=== PATIENT | male | born 1950 | race African-American/Black ===

== ENCOUNTER 2016-10-10 16:27 | Inpatient (IN) | payer MEDICARE ==
--- NOTE | ~2016-10-10 | HP ---
History And Physical [place] [id number] [place] [address] NAME: DULCE MARIA ELLIS : 52 STATUS : ADM IN PAT#: [id number] AGE: 66 ADM/REG DATE : 10/10/16 MR#: [id number] REPORT SERV DATE: 10/10/16 DICTATED BY: ITZEL ACOSTA DATE: 10/10/16 REPORT STATUS : Draft TRANSCRIBED BY: MODL DATE: 10/10/16 DATE OF ADMISSION: 10/10/2016 PULMONARY CRITICAL CARE MEDICINE ADMITTING HISTORY AND PHYSICAL REASON FOR ADMISSION: Stroke. HISTORY OF PRESENT ILLNESS: Mr. Dulce Maria Ellis is a pleasant 66-year-old, gentleman, who developed onset of acute dysarthria with some right-sided weakness around 1300 today. His initial NIH stroke scale on ER arrival was 6. Of note, he has had a prior left MCA stroke in the past. He was a Code Stroke upon his arrival to the emergency department and was seen by Dr. Montes and later by Dr. Ozuna who administered alteplase around 1452 today. He is now being moved to the intensive care unit for close monitoring as part of a code stroke protocol. ADDITIONAL PAST MEDICAL HISTORY: He is 25+ year insulin-dependent type 1 diabetic with multiple previous episodes of DKA as well as hypoglycemic episodes in the past. He has complications of peripheral neuropathy and autonomic neuropathy as well as retinopathy. He sees Dr. Nino Anand for Endocrinology. He also has a history of nonischemic cardiomyopathy with last echo on file in our system from 2011, which showed left atrial enlargement at around 4.5 cm and global LV hypokinesis between 20% and 25%. He is followed by Dr. Cecilio Mcelroy from Cardiology and has undergone placement of an AICD pacemaker with die filer Dr. Otero who also follows him. His primary care physician is Dr. Jose Saldivar. He had a left MCA stroke in 2010, which presented as dysarthria. He has additional past medical of hypertension, stage 3 chronic kidney disease, childhood asthma, and remote cocaine abuse, as well as seasonal allergies, and intermittent episodes of constipation. PAST SURGICAL HISTORY: Includes pacer, defibrillator placement, as well as device exchange after original implantation. He has had a left ankle ORIF and a right knee arthroscopy. SOCIAL HISTORY: He is . Denies tobacco abuse. He is a very infrequent alcohol user and does have a remote history of cocaine abuse as well, although he has abstained for several years now. 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 FAMILY HISTORY: Mother had stomach cancer. Father had prostate cancer. He has one sibling who of complications of diabetes and another with chronic kidney disease. MEDICATIONS: Amlodipine 10 mg daily, aspirin 325 mg daily, Lipitor 80 mg daily, Bumex 2 mg p.o. twice a day, Coreg 25 mg p.o. twice a day, fluticasone nasal spray 50 mcg to each nasal passage daily, insulin Levemir 14 units subcutaneous twice a day as well as sliding scale short-acting NovoLog with meals, BiDil 20/37.5 three times daily, lactulose as needed for constipation, and Aldactone 25 mg p.o. twice a day. ALLERGIES: NO KNOWN DRUG ALLERGIES. History And Physical [address] [place]. [address] NAME: DULCE MARIA ELLIS : 52 STATUS : ADM IN PAT#: [id number] AGE: 66 ADM/REG DATE : 10/10/16 MR#: [id number] REPORT SERV DATE: 10/10/16 DICTATED BY: ITZEL ACOSTA DATE: 10/10/16 REPORT STATUS : Draft TRANSCRIBED BY: CARMELO DATE: 10/10/16 REVIEW OF SYSTEMS: A 14-point review of systems was completed and was negative except for those points described above in the history of present illness section of the dictation. PHYSICAL EXAMINATION: GENERAL: gentleman. No stated pain. He is in no acute distress. VITAL SIGNS: Normotensive with blood pressure in the 130 systolic, normal heart rate, afebrile, with normal respirations. HEENT: Head is atraumatic and normocephalic. Pupils are equal, round, and reactive to light. Extraocular movements are intact. Ears, nose, and mouth are unremarkable. He has fair oral dentition. Moist oral mucosa. NECK: Supple with some redundant soft tissue about the neck. Limiting ability to assess for JVD. No nuchal rigidity is appreciated. HEART: S1, S2. Brisk cap refill to distal extremities. He has AICD insertion scar, which is well healed in the upper chest. LUNGS: Significant for slightly diminished breath sounds with a few scattered crackles at the bases bilaterally. ABDOMEN: Obese, soft, nontender, nondistended, with positive bowel sounds in all four quadrants, and no appreciable peritoneal signs. : Normal external male genitalia. EXTREMITIES: With trace edema bilaterally pretibially. No clubbing or cyanosis appreciated. LYMPHATIC: Unremarkable. No palpable adenopathy throughout. NEUROLOGIC: Mildly dysarthric with no evidence of aphasia. He states his dysarthria is much improved from earlier this afternoon prior to alteplase administration. He has a slight right handgrip weakness when compared to the left, but is able to lift and hold both right upper extremities in the ER for 10 seconds. Sensory function appears to be symmetric throughout. Gait and coordination were not assessed. He is awake, cooperative, and interactive with examination. PSYCHIATRIC: Appropriate to situation. LABORATORY DATA: Personal review of diagnostic workup completed in the emergency department today. A brain stroke protocol was read as no acute CVA or ICH, large old MCA, CVA, and moderate diffuse cerebral involutional changes. A CTA head and neck showed no intra- arterial thrombus, suboptimal opacification of the arteries in the neck, overall unremarkable CT angiogram. CBC was unremarkable. Normal white blood cell count and platelet count. He has mild normochromic/normocytic anemia with a hemoglobin of 12.8, hematocrit of 38.8. His INR is 1.2. Of note, he is on no anticoagulants according to his current home medication list. We will need to investigate this further. Metabolic profile largely unremarkable. He has a creatinine level of 1.62 with a known history of stage 3 chronic kidney disease and BUN which is 23. His calculated GFR is around 51 mL/minute. He is hyperglycemic at 229 in the setting of known type 1 diabetes which is fairly brittle. He has mild elevation of troponin of 0.09, normal transaminases, and a slight hypoalbuminemia at 3.4. An EKG shows normal sinus rhythm with a slightly prolonged QT at a ventricular rate of [address] elevation or depression by my assessment. [employer] [facility] records were reviewed including 2012 echocardiogram and previous dictations from History And Physical [address] [address] NAME: DULCE MARIA ELLIS EVELYN : 52 STATUS : ADM IN [facility]#: [id number] AGE: 66 ADM/REG DATE : 10/10/16 MR#: [id number] REPORT SERV DATE: 10/10/16 DICTATED BY: ITZEL ACOSTA DATE: 10/10/16 REPORT STATUS : Draft TRANSCRIBED BY: CARMELO DATE: 10/10/16 Hospital Medicine Service as well as consulting services. IMPRESSION: 1. Suspected acute cerebrovascular accident in the setting of dysarthria, right hemiparesis, and multiple stroke risk factors, including prior left middle cerebral artery cerebrovascular accident status post administration of alteplase in the emergency department after assessment of Dr. Ozuna at 1452 today. He has been started on a stroke protocol and we will continue close observation in the CCU tonight. He is not a candidate for an MRI secondary to his AICD. Dr. Ozuna has already completed most of his stroke protocol orders including fasting lipid profile and carotid Doppler study and a followup CT for tomorrow morning. 2. Type 1 diabetes long-standing with multiple complications as seen in the HPI section as well as past medical history section. We will continue covering him with long and short-acting insulins. Pending passage of a bedside dysphagia screen such that he may continue eating his normal diabetic diet and we will make further adjustments to his regimen based on the blood sugar trends in the hemoglobin A1c level. 3. History of nonischemic cardiomyopathy. We will be judicious with regard to volume administration. We will hold IV fluids for now as the patient is probably going to be able to drink following passage of his bedside dysphagia screen, should he fail, we will readdress the need for intravenous hydration. 4. Hypertension, controlled. His home antihypertensive agents have been held by Dr. Ozuna in the setting of suspected ischemic stroke and we will readdress tomorrow. 5. Dyslipidemia. He has already been started on atorvastatin at a high doses by Dr. Ozuna. We will check a fasting lipid profile. 6. Mild normochromic normocytic anemia, stable. 7. Stage 3 chronic kidney disease. Avoid nephrotoxins where feasible and trend creatinine levels. 8. Mild troponinemia, likely demand in the setting of his acute events. He has no ST elevation or depression. We will follow up another set of biomarkers in 6-8 hours. 9. Additional past medical history as above. 10.He has already been started on B12 and folate supplementation by Dr. Ozuna and we will consult PT, OT, and Speech Therapy to assess tomorrow per Dr. Ozuna's orders. Lovenox for DVT prophylaxis. Protonix for GI prophylaxis. He is a full code. 11.We will follow up the workup and make further adjustments to his regimen as clinically warranted. Plan to transfer to telemetry unit on the stroke floor on Tuesday after 3 p.m. Pending clinical stability. His has been updated at the bedside in the CCU tonight. I discussed the case with Dr. Ozuna. YUDITH/CARMELO Itzel Acosta MD / [id number] History And Physical [address] [address] NAME: DULCE MARIA ELLIS : 52 STATUS : ADM IN [facility]#: [id number] AGE: 66 ADM/REG DATE : 10/10/16 MR#: [id number] REPORT SERV DATE: 10/10/16 DICTATED BY: ITZEL ACOSTA DATE: 10/10/16 REPORT STATUS : Draft TRANSCRIBED BY: CARMELO DATE: 10/10/16 CC: Itzel Acosta MD
--- NOTE | ~2016-10-10 | DS ---
Discharge Summary [facility] [address] [place]. [address] NAME: DULCE MARIA AGUILLON : 52 STATUS : DIS IN PAT#: [id number] AGE: 66 ADM/REG DATE : 10/10/16 MR#: [id number] REPORT SERV DATE: 10/15/16 DICTATED BY: ELIZABETH SHI DATE: 10/14/16 REPORT STATUS : Draft TRANSCRIBED BY: CARMELO DATE: 10/14/16 ADMISSION DATE: 10/10/2016 DISCHARGE DATE: 10/14/2016 CONSULTATION: Neurology. DISCHARGE DIAGNOSES: 1. Acute cerebrovascular accident, right occipital/cerebellar region in the SERVICES DELIVERY DRIVER territory. 2. Left upper quadrant hemianopsia secondary to right occipital cerebrovascular accident. 3. Diabetes mellitus type 1, on insulin therapy. 4. Nonischemic cardiomyopathy, status post AICD placement. 5. Heart failure with reduced ejection fraction 25% (chronic). 6. History of hypertension. 7. History of chronic kidney disease stage 3. 8. Demand ischemia. 9. Hypertension. DISCHARGE CONDITION: Stable. IMAGIN. CT brain stroke protocol, impression, no acute CVA or acute intracranial hemorrhage. 2. Large old CVA, left frontal lobe. 3. Moderate diffuse cerebral involution changes. 4. CTA, brain and neck, impression:. a. Unremarkable intracranial CTA. No intraarterial thrombus. b. Nondiagnostic CTA of the carotid arteries with suboccipital opacification of the arteries of the neck, although no gross occlusion or large intraluminal thrombus within the vertebral or carotid artery distribution identified. 5. Echocardiogram. Summary, technically difficult study due to limited acoustic windows. Moderate left ventricular enlargement with severe disease in systolic function. Estimated ejection fraction 30%. Global hypokinesis. Normal right RV size and systolic function. Mild left atrial enlargement. Aortic valve sclerosis without significant stenosis. Mild pulmonary hypertension with RVSP of 46 mmHg. Trace pericardial effusion. When compared to previous study from 01/2012, ejection fraction improved. 6. Carotid ultrasound. Impression:. a. No appreciable stenosis appreciated involving the cervical portions of the right carotid artery. b. Findings compatible with category 1 disease less than 50% stenosis (involving the left internal carotid artery). The vertebral arteries are patent with antegrade flow bilaterally. HISTORY OF PRESENT ILLNESS: For detailed HPI, please make reference to Dr. Hurst's dictation on 10/10/2016. In brief, this is a 66-year-old male, who presented to the emergency room with acute onset of dysarthria with right-sided weakness. The initial NIH stroke scale in the ER was 6. Code stroke was initiated in the emergency room on Discharge Summary [address] [address] NAME: DULCE MARIA AGUILLON : 52 STATUS : DIS IN PAT#: [id number] AGE: 66 ADM/REG DATE : 10/10/16 MR#: [id number] REPORT SERV DATE: 10/15/16 DICTATED BY: ELIZABETH SHI DATE: 10/14/16 REPORT STATUS : Draft TRANSCRIBED BY: CARMELO DATE: 10/14/16 presentation. The patient had a stat CT of the brain that shows no acute intracranial hemorrhage. The patient was administered tPA in the ER by the Neurology team. The patient was subsequently transferred to the intensive care unit for close monitoring. HOSPITAL COURSE: 1. Acute cerebrovascular stroke in the right occipital lobe in the SERVICES DELIVERY DRIVER territory. The patient's dysarthria and weakness subsequently improved. A repeat CTA of the brain did not show evidence of intracranial bleed. No complication of tPA noted. However, the patient was noted to have persistent neurologic deficits with right hemianopsia. The patient's AICD was interrogated by the Cardiology team during this admission. No evidence of atrial fibrillation or malignant arrhythmias noted. The patient was subsequently allowed to have permissive hypertension. The patient was subsequently transitioned to aspirin and Plavix. The patient remained stable in the ICU, and then transferred back to the cardiac telemonitoring floor. The patient continued to have significant improvement in right-sided weakness. At the time of discharge, the patient's right-sided weakness and dysarthria had completely resolved. The patient was subsequently discharged home to follow up with Neurology and primary care physician as an outpatient. 2. Diabetes mellitus type 1, on insulin therapy. The patient had an episode of significant hyperglycemia, was placed on insulin drip. No evidence of DKA. No evidence of HHS. The patient's blood sugar subsequently trended down. Prior to discharge, the patient was transitioned back to subcu insulin. The patient's blood glucose remained stable. The patient was advised to continue subcu insulin therapy and follow up with PCP as an outpatient. 3. Chronic kidney disease stage 3. The patient's creatinine, last known baseline, was 1.8. On presentation, the patient's creatinine was 1.6. The patient's creatinine remains within the range of 1.6 to 1.3 throughout the course of this admission. The patient's spironolactone was continued during the course of this admission. The patient was advised to continue to follow up with primary care physician and Nephrology as an outpatient. 4. Known ischemic cardiomyopathy, status post AICD placement. No evidence of acute decompensated heart failure. No evidence of chest pain. No EKG changes in keeping with acute CO noted during this admission. The patient's cardiac medications were continued during this admission. No invasive cardiac intervention performed. AICD was interrogated. No arrhythmias or chronic atrial fibrillation noted. The patient was advised to continue to follow up with Cardiology as an outpatient. 5. Demand ischemia. The patient's troponin was mildly elevated during this admission, likely related to chronic kidney disease. No evidence of chest pain. The patient was advised to continue to follow up with Cardiology as an outpatient. DISCHARGE MEDICATIONS: 1. Aspirin 325 mg p.o. daily. 2. Plavix 75 mg p.o. daily. 3. Atorvastatin 80 mg p.o. daily. 4. Levemir 14 units b.i.d. 5. Lactulose 60 mL p.o. daily. 6. Pantoprazole 40 mg p.o. daily. Discharge Summary [address] [address] NAME: DULCE MARIA AGUILLON : 52 STATUS : DIS IN PAT#: [id number] AGE: 66 ADM/REG DATE : 10/10/16 MR#: [id number] REPORT SERV DATE: 10/15/16 DICTATED BY: ELIZABETH SHI DATE: 10/14/16 REPORT STATUS : Draft TRANSCRIBED BY: MODL DATE: 10/14/16 7. Spironolactone 25 mg p.o. daily. 8. Coreg 3.125 mg p.o. daily. DISCHARGE CONDITION: Stable. DISCHARGE ACTIVITY: As tolerated. DISCHARGE DIET: ADA 1800-calorie diet. DISCHARGE FOLLOWUP: 1. Follow up with primary care physician within one week of discharge. 2. Follow up with Neurology within two to three weeks of discharge. 3. Follow up with Cardiology within three to four weeks of discharge. 4. Continue to follow up with Nephrology as an outpatient. Greater than 35 minutes was used to prepare this patient's discharge, reconcile medication, advise the patient on discharge plans, and followup. DICTATED BY: MD RADHA RicoO/CARMELO Elizabeth Shi MD / [id number] CC: MD Jose Rico Jr., M.D.
--- NOTE | ~2016-10-10 | CN ---
Consultation Report [facility] [address] [place]. [address] NAME: DULCE MARIA AGUILLON : 52 STATUS : ADM IN PAT#: [id number] AGE: 66 ADM/REG DATE : 10/10/16 MR#: [id number] REPORT SERV DATE: 10/11/16 DICTATED BY: DATE: REPORT STATUS : Draft TRANSCRIBED BY: MODL DATE: 10/10/16 NEUROLOGY CONSULTATION. DATE OF CONSULTATION: 10/10/2016 REASON FOR CONSULT: Possible acute stroke. HISTORY OF PRESENT ILLNESS: This is a 66-year-old male presented to [facility] on 10/10/2016 secondary to acute onset of dysarthria as well as weakness. The patient noted to have right arm all as well as leg weakness and numbness. The patient reports dysarthria, problem getting words out as well as slurred speech. The symptoms started at roughly 1300 hours. The patient reports improvement of symptom, but not completely resolved. The patient does have a history of prior stroke in the past with a resultant problem talking as well as weakness on one side, although the patient does not remember which side. The patient denies any recent illness, fever, chills, nausea, vomiting, chest pain, or shortness of breath, and denies any other complaints. Denies any changes in medication. The patient baseline does take Coumadin. Also, the patient does not remember if he has take any Coumadin recently. PAST MEDICAL HISTORY: Significant for history of previous stroke in the past as well as history of atrial fibrillation as well as history of diabetes. The patient also has had history of AICD placement with history of nausea, vomiting, diarrhea, or rectal bleeding. History of previous edema. The patient also has had history of low ejection fraction in the past. SOCIAL HISTORY: Denies tobacco, alcohol, or recreational drug usage. FAMILY HISTORY: Significant for cancer. REVIEW OF SYSTEMS: Negative except for those mentioned in the HPI. MEDICATIONS: The patient reportedly taking Coumadin. Also, the patient does not remember the last dose. ALLERGIES: THE PATIENT REPORTS NO KNOWN DRUG ALLERGIES. PHYSICAL EXAMINATION: VITAL SIGNS: At time of evaluation, the patient was noted to have vital signs with T-max of 97.2, heart rate of 80, respiration of 16, and blood pressure of 142/80. GENERAL: The patient is well developed, well nourished, in no acute distress. CARDIOVASCULAR: Regular rate and rhythm. No carotid bruits were otherwise auscultated. PULMONARY: Clear to auscultation bilaterally. NEUROLOGICAL: Generally, the patient is alert and oriented to person, place, year, and month. Follows simple and two-step commands. Dysarthria was noted at time of evaluation. Consultation Report [facility] [address] [place]. [address] NAME: DULCE MARIA AGUILLON : 52 STATUS : ADM IN PAT#: [id number] AGE: 66 ADM/REG DATE : 10/10/16 MR#: [id number] REPORT SERV DATE: 10/11/16 DICTATED BY: DATE: REPORT STATUS : Draft TRANSCRIBED BY: MODL DATE: 10/10/16 The patient noted to have mild aphasia, express difficulty sometimes getting his words out. The patient is able to follow simple and two-step commands. Has some difficulties with recall. Cranial nerves 2 through 12. Pupils equal, round, and reactive to light. Horizontal eye movement was noted to be intact with intact [id number] response. Decreased nasolabial fold as well as right facial, lower facial weakness was noted. Midline tongue. Normal palatal movement. Reports symmetrical sensation in bilateral upper and lower extremity. The patient was noted to have mild decreased hearing in bilateral ears. The patient otherwise was noted to have strength in bilateral upper extremities and no drift was observed. The patient was noted to have decreased sensation in bilateral upper extremity. The patient was noted to have decreased sensation in the right upper extremity and decreased sensation in the left lower extremity. The patient was noted to have drift in the right lower extremity as well as 5/5 strength in the left lower extremity. Deep tendon reflex was 2+ in the left upper extremity and bilateral lower extremity, 3+ in the right upper extremity. Normal [id number] examination without ataxia. Gait was not evaluated secondary to the patient's acute symptoms. LABORATORY DATA: Laboratory study demonstrated sodium 137, potassium 4.1, chloride 104, bicarb 24, BUN of 23, creatinine of 1.62, glucose of 229, calcium of 8.5. White blood cell count of 8.7, hemoglobin of 12.8, hematocrit of 38.8, and platelet count of 284. INR of 1.2. CT scan of the brain otherwise demonstrated no acute process. CT angiogram of the head was reviewed by Dr. Lopez which demonstrated no acute thrombus. CT angiogram of the neck unfortunately was difficult to assess for detail secondary to pacemaker leads. IMPRESSION: Dysarthria and right hemiparesis, time of onset at 1300 hours. NIH stroke scale of 6. CT scan of the brain demonstrated prior left middle cerebral artery frontal stroke. No other acute event was otherwise seen. was given at 1452 hours. We will admit the patient to ICU. Unfortunately, the patient is unable to tolerate MRI scanning secondary to AICD placement. We will repeat CT scan of the brain on 09/10/2016 to evaluate for any hemorrhage. The patient was also noted to have nondiagnostic CTA of neck. As a result, so we will obtain carotid Doppler study for further evaluation. The patient's CT angiogram of the head demonstrated no acute proximal thrombus. We will provide the patient with a Lipitor as patient was noted to have subtherapeutic INR. We will evaluate for possible other anticoagulation 24 hours after tPA administration. RECOMMENDATION: 1. Admit to ICU. 2. CT scan of the brain without contrast on 10/11/2016. 3. Carotid Doppler study. 4. Fasting lipid panel and hemoglobin A1c. 5. Lipitor 80 mg p.o. at bedtime. 6. PT/OT/Speech Therapy to evaluate and treat. 7. Echocardiogram. Consultation Report [address] [place]. [address] NAME: DULCE MARIA AGUILLON : 52 STATUS : ADM IN [facility]#: [id number] AGE: 66 ADM/REG DATE : 10/10/16 MR#: [id number] REPORT SERV DATE: 10/11/16 DICTATED BY: DATE: REPORT STATUS : Draft TRANSCRIBED BY: MODL DATE: 10/10/16 [facility] Aurelio Ozuna MD / [id number] CC: Itzel Hurst MD
[~2016-10-10 16:27] MED LIST: ASA5GR PO; ASAB PO; ATACAND8 MG PO; BENZONATATE; BLOOD THINNER PO; BUDEPRION150 MG PO; BUM2 PO; BUPROBAN150 MG PO; COQ10100 MG OR; COREG12 PO; COREG25 PO; GLUCAGEN IM; HUMALOG SC; L80 PO; LACT30UDL PO; LEVEMIR SC; LIPITOR80 MG PO; NEXIUM40 PO; NORV10 PO; NOVOLOG SC; PLAVIX; PLAVIX PO; PREV15 PO; PREVACID PO; PRILO PO; PRIN20 PO; SPIRO25 PO; T PO; VITAMIN D1000 UNI1 PO; WELLXL150 PO; ZESTRIL40 MG PO; ZOCOR40 PO
[2016-10-10 16:36] LABS: BASOPHILS 0.3 %; BASOPHILS ABSOLUTE 0.03 10/3/uL (0.0-0.16); EOSINOPHILS 5.1 %; EOSINOPHILS ABSOLUTE 0.44 10/3/uL (0.0-0.53); ER CBC TAT 0 Hrs 11 Mins; HEMATOCRIT 38.8 % (40.0-51.0); HEMOGLOBIN 12.8 g/dL (13.6-17.8); IMMATURE GRANULOCYTES 0.2 %; IMMATURE GRANULOCYTES ABSOLUTE 0.02 10/3/uL (0.0-0.11); LYMPHOCYTES 35.6 %; LYMPHOCYTES ABSOLUTE 3.08 10/3/uL (0.67-4.30); MEAN CORPUSCULAR HEMOGLOB 27.1 pg (26.0-34.0); MEAN PLATELET VOLUME 10.9 fL (9.2-13.0); MONOCYTES 9.5 %; MONOCYTES ABSOLUTE 0.82 10/3/uL (0.21-1.20); NEUTROPHILS 49.3 %; NEUTROPHILS ABSOLUTE 4.27 10/3/uL (2.02-8.40); PLATELET COUNT 284 10/3/uL (150-400); RBC DISTRIBUTION WIDTH 13.9 % (12.0-16.0); RED CELL COUNT 4.73 10/6/uL (4.7-6.1); WHITE BLOOD CELLS 8.7 10/3/uL (4.5-10.5)
[2016-10-10 16:38] LABS: MANUAL DIFF NO %
[2016-10-10 16:39] LABS: INTERNATIONAL NORMAL RATI 1.2 UNITS (-); PARTIAL THROMBO TIME 27.7 SEC (22.5-37.2); PROTIME (NOT ORD) 15.2 SEC (12.0-14.5)
[2016-10-10 16:46] LABS: A/G RATIO 0.8 (0.7-1.9); ALBUMIN 3.4 G/DL (3.5-5.0); ALKALINE PHOSPHATASE 115 U/L (45-117); BUN (BLOOD UREA NITROGEN) 23 MG/DL (6-23); CALCIUM, SERUM 8.5 MG/DL (8.5-10.4); CHLORIDE, SERUM 104 MMOL/L (96-112); CO2 (CARBON DIOXIDE) 24 MMOL/L (24-34); CREATININE 1.62 MG/DL (0.70-1.30); GFR AFRICAN AMERICAN 51 ML/MIN (>=60); GFR NON AFRICAN AMERICAN 44 ML/MIN (>=60); GLOBULIN 4.2 G/DL (2.5-4.1); POTASSIUM, SERUM 4.1 MMOL/L (3.5-5.3); SGOT(AST) 19 U/L (5-40); SGPT(ALT) 29 U/L (5-65); SODIUM, SERUM 137 MMOL/L (135-148); TOTAL BILIRUBIN 0.6 MG/DL (0-1.2); TOTAL PROTEIN 7.6 G/DL (6.0-8.5)
[2016-10-10 16:47] LABS: GLUCOSE, SERUM 229 MG/DL (60-99); TROPONIN I 0.09 NG/ML (<0.05)
[2016-10-10] MEDS ORDERED: COREG25 PO (17:12)
[2016-10-10] MEDS ORDERED: BIDIL20/37 PO (17:12)
[2016-10-10] MEDS ORDERED: LIPITOR80 MG PO (17:12)
[2016-10-10] MEDS ORDERED: ASA5GR PO (17:13)
[2016-10-10] MEDS ORDERED: LEVEMIR SC (17:13)
[2016-10-10] MEDS ORDERED: BUM2 PO (17:13)
[2016-10-10] MEDS ORDERED: SPIRO25 PO (17:14)
[2016-10-10] MEDS ORDERED: NOVOLOG SC (17:14)
[2016-10-10] MEDS ORDERED: NORV10 PO (17:14)
[2016-10-10] MEDS ORDERED: FLONASE NAS (17:14)
[2016-10-10] MEDS ORDERED: CONSTULOSE PO (17:15)
[2016-10-10 21:21] LABS: CHOL/HDL RATIO(NOT ORDER) 3.7 (0-5); CHOLESTEROL 139 MG/DL (< 200); CK-MB 1.7 NG/ML; CPK 251 U/L (0-200); FOLATE 13.3 NG/ML (>5.2); HDL CHOLESTEROL 38 MG/DL (> 39); LDL CHOLESTEROL 54 MG/DL (< 130); NON-HDL CHOLESTEROL 101 MG/DL (< 160); TRIGLYCERIDE 239 MG/DL (< 150)
[2016-10-10 21:51] LABS: ASCORBIC ACID (UR NOT ORDER) NEG (NEG); BILIRUBIN, URINE NEGATIVE (NEG); KETONE, URINE NEGATIVE (NEG); LEUKOCYTE ESTERASE(NOT OR NEG (NEG); WBC (NOT ORDERED) (RFLEX) 1 (0-5)
[2016-10-11 01:30] LABS: CK-MB 1.6 NG/ML; CPK 222 U/L (0-200); TROPONIN I 0.14 NG/ML (<0.05)
[2016-10-11 08:29] LABS: GLYCOHEMOGLOBIN (HbA1c) 9.4 % (4.7-6.1)
[2016-10-11 09:35] LABS: BASOPHILS 0.3 %; BASOPHILS ABSOLUTE 0.02 10/3/uL (0.0-0.16); EOSINOPHILS 5.4 %; EOSINOPHILS ABSOLUTE 0.38 10/3/uL (0.0-0.53); HEMATOCRIT 38.7 % (40.0-51.0); HEMOGLOBIN 12.9 g/dL (13.6-17.8); IMMATURE GRANULOCYTES 0.4 %; IMMATURE GRANULOCYTES ABSOLUTE 0.03 10/3/uL (0.0-0.11); MEAN CORPUS HGB CONC 33.3 g/dL (32.0-36.0); MEAN PLATELET VOLUME 11.2 fL (9.2-13.0); MONOCYTES 9.7 %; MONOCYTES ABSOLUTE 0.68 10/3/uL (0.21-1.20); NEUTROPHILS 54.2 %; NEUTROPHILS ABSOLUTE 3.78 10/3/uL (2.02-8.40); PLATELET COUNT 270 10/3/uL (150-400); RBC DISTRIBUTION WIDTH 14.1 % (12.0-16.0); RED CELL COUNT 4.78 10/6/uL (4.7-6.1)
[2016-10-11 09:36] LABS: MANUAL DIFF NO %
[2016-10-11 09:52] LABS: ALBUMIN 3.2 G/DL (3.5-5.0); BUN (BLOOD UREA NITROGEN) 22 MG/DL (6-23); CALCIUM, SERUM 8.8 MG/DL (8.5-10.4); CHLORIDE, SERUM 102 MMOL/L (96-112); CO2 (CARBON DIOXIDE) 25 MMOL/L (24-34); CREATININE 1.56 MG/DL (0.70-1.30); GFR AFRICAN AMERICAN 53 ML/MIN (>=60); GFR NON AFRICAN AMERICAN 46 ML/MIN (>=60); PHOSPHORUS, SERUM 2.7 MG/DL (2.5-4.5); POTASSIUM, SERUM 4.3 MMOL/L (3.5-5.3); SODIUM, SERUM 135 MMOL/L (135-148)
[2016-10-11 09:53] LABS: CK-MB 1.1 NG/ML; CPK 194 U/L (0-200); GLUCOSE, SERUM 333 MG/DL (60-99); TROPONIN I 0.17 NG/ML (<0.05)
[2016-10-12 00:44] LABS: BUN (BLOOD UREA NITROGEN) 22 MG/DL (6-23); CALCIUM, SERUM 8.5 MG/DL (8.5-10.4); CHLORIDE, SERUM 106 MMOL/L (96-112); CO2 (CARBON DIOXIDE) 26 MMOL/L (24-34); CREATININE 1.48 MG/DL (0.70-1.30); GFR AFRICAN AMERICAN 57 ML/MIN (>=60); GFR NON AFRICAN AMERICAN 49 ML/MIN (>=60); GLUCOSE, SERUM 197 MG/DL (60-99); POTASSIUM, SERUM 4.2 MMOL/L (3.5-5.3); SODIUM, SERUM 139 MMOL/L (135-148)
[2016-10-12 04:46] LABS: BASOPHILS 0.4 %; BASOPHILS ABSOLUTE 0.03 10/3/uL (0.0-0.16); EOSINOPHILS ABSOLUTE 0.42 10/3/uL (0.0-0.53); HEMATOCRIT 39.1 % (40.0-51.0); HEMOGLOBIN 13.2 g/dL (13.6-17.8); IMMATURE GRANULOCYTES 0.4 %; IMMATURE GRANULOCYTES ABSOLUTE 0.03 10/3/uL (0.0-0.11); LYMPHOCYTES ABSOLUTE 2.67 10/3/uL (0.67-4.30); MEAN CORPUS HGB CONC 33.8 g/dL (32.0-36.0); MEAN CORPUSCULAR HEMOGLOB 27.6 pg (26.0-34.0); MEAN CORPUSCULAR VOLUME 81.8 fL (80-100); MONOCYTES 12.4 %; MONOCYTES ABSOLUTE 0.87 10/3/uL (0.21-1.20); NEUTROPHILS 42.8 %; NEUTROPHILS ABSOLUTE 3.01 10/3/uL (2.02-8.40); NUCLEATED RED BLOOD CELLS 0.7 /100WBC (0-0); PLATELET COUNT 270 10/3/uL (150-400); RBC DISTRIBUTION WIDTH 13.7 % (12.0-16.0); RED CELL COUNT 4.78 10/6/uL (4.7-6.1)
[2016-10-12 04:48] LABS: MANUAL DIFF NO %
[2016-10-12 04:53] LABS: BUN (BLOOD UREA NITROGEN) 20 MG/DL (6-23); CALCIUM, SERUM 8.7 MG/DL (8.5-10.4); CHLORIDE, SERUM 106 MMOL/L (96-112); CO2 (CARBON DIOXIDE) 23 MMOL/L (24-34); GFR AFRICAN AMERICAN 66 ML/MIN (>=60); GFR NON AFRICAN AMERICAN 57 ML/MIN (>=60); GLUCOSE, SERUM 165 MG/DL (60-99); SODIUM, SERUM 137 MMOL/L (135-148)
[2016-10-12 11:31] LABS: CREATININE 1.5 MG/DL (0.70-1.30)
[2016-10-14 08:05] LABS: BASOPHILS 0.4 %; BASOPHILS ABSOLUTE 0.03 10/3/uL (0.0-0.16); EOSINOPHILS ABSOLUTE 0.37 10/3/uL (0.0-0.53); HEMATOCRIT 39.1 % (40.0-51.0); HEMOGLOBIN 12.9 g/dL (13.6-17.8); IMMATURE GRANULOCYTES 0.4 %; IMMATURE GRANULOCYTES ABSOLUTE 0.03 10/3/uL (0.0-0.11); LYMPHOCYTES 32.9 %; LYMPHOCYTES ABSOLUTE 2.42 10/3/uL (0.67-4.30); MANUAL DIFF NO %; MEAN PLATELET VOLUME 10.7 fL (9.2-13.0); MONOCYTES 10.7 %; MONOCYTES ABSOLUTE 0.79 10/3/uL (0.21-1.20); NEUTROPHILS 50.6 %; NEUTROPHILS ABSOLUTE 3.71 10/3/uL (2.02-8.40); PLATELET COUNT 282 10/3/uL (150-400); RBC DISTRIBUTION WIDTH 14.1 % (12.0-16.0); RED CELL COUNT 4.77 10/6/uL (4.7-6.1); WHITE BLOOD CELLS 7.4 10/3/uL (4.5-10.5)
[2016-10-14 08:41] LABS: BUN (BLOOD UREA NITROGEN) 21 MG/DL (6-23); CALCIUM, SERUM 8.6 MG/DL (8.5-10.4); CHLORIDE, SERUM 104 MMOL/L (96-112); CO2 (CARBON DIOXIDE) 22 MMOL/L (24-34); CREATININE 1.54 MG/DL (0.70-1.30); GFR AFRICAN AMERICAN 54 ML/MIN (>=60); GFR NON AFRICAN AMERICAN 47 ML/MIN (>=60); PHOSPHORUS, SERUM 2.8 MG/DL (2.5-4.5); SODIUM, SERUM 134 MMOL/L (135-148)
[2016-10-14 08:43] LABS: GLUCOSE, SERUM 292 MG/DL (60-99)
[2016-10-14] MEDS ORDERED: BUM1 PO (10:40)
== END 2016-10-14 14:27 | disposition home or self-care (01) | DRG 62 ==
LOC: ER 16:27 → CCU 17:55 → 1SO 10-12 19:31
PROVIDERS: Emergency Medicine; Hospitalist; Internal Medicine Critical Care Medicine
DX: I63.232 Cerebral infarction due to unspecified occlusion or stenosis of left carotid arteries (principal); G81.91 Hemiplegia, unspecified affecting right dominant side; I42.8 Other cardiomyopathies; I24.8 Other forms of acute ischemic heart disease; I13.0 Hypertensive heart and chronic kidney disease with heart failure and stage 1 through stage 4 chronic kidney disease, or unspecified chronic kidney disease; I50.22 Chronic systolic (congestive) heart failure; I31.3 Pericardial effusion (noninflammatory); E10.22 Type 1 diabetes mellitus with diabetic chronic kidney disease; R29.706 NIHSS score 6; Z68.35 Body mass index [BMI] 35.0-35.9, adult; E10.43 Type 1 diabetes mellitus with diabetic autonomic (poly)neuropathy; I35.8 Other nonrheumatic aortic valve disorders; I27.2 Other secondary pulmonary hypertension; H53.47 Heteronymous bilateral field defects; N18.3 Chronic kidney disease, stage 3 (moderate); E10.319 Type 1 diabetes mellitus with unspecified diabetic retinopathy without macular edema; I69.320 Aphasia following cerebral infarction; E66.9 Obesity, unspecified; D64.9 Anemia, unspecified; E78.5 Hyperlipidemia, unspecified; K59.00 Constipation, unspecified; R47.1 Dysarthria and anarthria; Z79.82 Long term (current) use of aspirin; Z79.4 Long term (current) use of insulin; Z79.899 Other long term (current) drug therapy; Z87.891 Personal history of nicotine dependence; Z95.810 Presence of automatic (implantable) cardiac defibrillator
CPT/HCPCS: 36415; 70450; 70496; 70498; 71010; 80048; 80053; 80061; 80069; 81001; 82140; 82550; 82553; 82607; 82746; 82962; 83036; 83735; 84100; 84443; 84484; 85025; 85610; 85730; 86850; 86900; 86901; 87641; 92523-GN; 93005; 93288; 93306; 93880; 96374; 97161-GP; 97165-GO; 99285; A9270-GY; G8978-CH-GP; G8979-CH-GP; G8980-CH-GP; J2997; Q9967

== ENCOUNTER 2016-12-29 00:39 | Inpatient (IN) | payer MEDICARE ==
[~2016-12-29] VITALS: Ht 180.3 cm; Wt 113.4 kg
--- NOTE | ~2016-12-29 | DS ---
Discharge Summary [place] [id number] [facility] [place] [place]. [address] NAME: DULCE MARIA AGUILLON : [birth year] STATUS : DIS IN PAT#: [id number] AGE: 66 ADM/REG DATE : 12/29/16 MR#: [id number] REPORT SERV DATE: 01/02/17 DICTATED BY: SHANTANU LANGE DATE: 01/01/17 REPORT STATUS : Draft TRANSCRIBED BY: MODL DATE: 01/01/17 ADMISSION DATE: 12/29/2016 DISCHARGE DATE: 01/01/2017 DISCHARGE DIAGNOSES: 1. Acute on chronic systolic and diastolic congestive heart failure with ejection fraction 25% to 30%. 2. Nonischemic cardiomyopathy. 3. Nonsustained ventricular tachycardia. 4. Dual-chamber implantable cardioverter defibrillator. 5. Uncontrolled diabetes with hypoglycemia on admission and hyperglycemia during hospitalization with hemoglobin A1c 8.9. 6. Hypertension. 7. Acute kidney injury associated with diuresis. 8. Chronic kidney disease 3. 9. Previous strokes with late affects. 10.Demand ischemia. 11.Elevated serum globulins, outpatient electrophoresis needed. 12.Chronic anemia. 13.Transient hemoptysis with negative CT imaging. OPERATIONS AND PROCEDURES: None. PRESENT ILLNESS: This is a 66-year-old male who was triaged in the emergency room on 12/29/2016 at 0043 hours complaining of shortness of breath. Admission ED vital signs; blood pressure 122/76, pulse 82, respirations 36, and O2 saturation 100% on 15 L. After evaluation in the emergency room, he was referred to the Hospitalist Service for admission. He was seen by Dr. Ralph Otero and admitted as described on admission history and physical examination. Additional history included hypoglycemia at home. His found him unresponsive. She checked his blood sugar and it was 30. She tried to give him orange juice and other food. EMS was called. His blood sugar was 32. He was given half an amp of D50 with dramatic improvement. He was then noted to be very dyspneic and in respiratory distress. He was given 80 mg of Lasix, sublingual nitroglycerin, and CPAP. He was brought to the hospital for evaluation. ADDITIONAL HISTORY: Per Dr. Otreo. PHYSICAL EXAMINATION: Per Dr. Otero. Discharge Summary [place] [id number] [facility] [place]. [address] NAME: DULCE MARIA AGUILLON DOB: [birth year] STATUS : DIS IN PAT#: [id number] AGE: 66 ADM/REG DATE : 12/29/16 MR#: [id number] REPORT SERV DATE: 01/02/17 DICTATED BY: SHANTANU LANGE DATE: 01/01/17 REPORT STATUS : Draft TRANSCRIBED BY: MODPauline DATE: 01/01/17 ADMISSION LABORATORY: Per Dr. Otero. HOSPITAL COURSE: He was admitted by Dr. Otero with: 1. Symptomatic hypoglycemia, now corrected. 2. Acute on chronic systolic congestive heart failure. 3. Possible aspiration pneumonia. 4. Acute hypoxemic respiratory failure. 5. Elevated troponin. 6. Chronic kidney disease, stage 3. 7. Leukocytosis. He was admitted to the [facility]. His hospitalist care was by Dr. Centeno through 12/31/2016. He was seen by the undersigned on 01/01/2017. On admission, his insulin doses were adjusted downward. He was given IV diuretic therapy. He was given O2. He was empirically placed on IV Zosyn. When evaluated by Dr. Centeno, procalcitonin level had returned at 0.06. His Zosyn was discontinued. Diuresis was continued. Cardiology consultation was obtained with his primary slot service specialist, Dr. Cecilio Mcelroy. He recommended initiating BiDil with in-hospital up titration as tolerated. During the course of his hospitalization, his dyspnea resolved. There are no weights to document his kilogram loss, but by intake and output, he diuresed approximately 7 L. BiDil was initiated and uptitrated. He tolerated this well. With diuresis, his creatinine increased from 1.62 on 12/29/2016 to 2.12 on 01/01/2017. His diuretics had been adjusted on 12/31/2016. His creatinine was rechecked 12 hours later on 01/01/2017 and had fallen to 2.08. Clinically, dry and stable. It was felt that he could be safely discharged home with 48- hour followup with his primary care physician, Dr. Saldivar, for an exam, BNP, and instructions for reinitiating his diuretic therapy pending same. Relative to his hypoglycemia on admission, he did not have hypoglycemia while hospitalized. He did have hyperglycemia. On discussion with his at discharge, she thought that his hypoglycemia related to his correction insulin scale and that he was not explicitly following instructions provided by Dr. Anand's office. He was seen by the undersigned at 0935 hours on 01/01/2017 and again at 1710 hours at which time his was present. He felt well. In view of his overall clinical stability, it was felt he could be safely discharged home with outpatient followup to see Dr. Saldivar in 48 hours and followup with Dr. Mcelroy in two weeks. MEDICATIONS AT DISCHARGE: Pending followup: Norvasc 5 mg daily, aspirin 81 mg daily, Discharge Summary [address] [address] NAME: DULCE MARIA AGUILLON : [birth year] STATUS : DIS IN PAT#: [id number] AGE: 66 ADM/REG DATE : 12/29/16 MR#: [id number] REPORT SERV DATE: 01/02/17 DICTATED BY: SHANTANU LANGE DATE: 01/01/17 REPORT STATUS : Draft TRANSCRIBED BY: MODL DATE: 01/01/17 Lipitor 40 mg daily, Coreg 25 mg twice daily, Plavix 75 mg daily, NovoLog FlexPen scale per Dr. Anand, Tresiba 22 units at bedtime, lactulose 30 mL daily, BiDil 20/37.5 two tablets three times daily, Prevacid 30 mg daily, nitroglycerin sublingually as needed and no Aldactone or Bumex pending office followup in 48 hours. Discharge BMP at 1610 hours on 01/01/2017; sodium 134, potassium 5.1, chloride 104, CO2 of 21, BUN 45, creatinine 2.08, glucose 184, calcium 8.9. [facility] arranged for heart failure management at discharge. DD/CARMELO Shantanu Lange M.D. / [id number] CC: Shantanu Lange M.D. Vince Steel Jr., III, M.D., [facility]
--- NOTE | ~2016-12-29 | HP ---
History And Physical [place] [id number] [facility] [place]. [address] NAME: DULCE MARIA ELLIS : [birth year] STATUS : ADM IN PAT#: [id number] AGE: 66 ADM/REG DATE : 12/29/16 MR#: [id number] REPORT SERV DATE: 12/29/16 DICTATED BY: LUNA SHEN DATE: 12/29/16 REPORT STATUS : Draft TRANSCRIBED BY: MODL DATE: 12/29/16 DATE OF ADMISSION: 12/29/2016 POINT OF ENTRY: [facility]. PRIMARY WRECKING MECHANIC: Dr. Mcelroy. CHIEF COMPLAINT: Low blood sugar and shortness of breath. HISTORY OF PRESENT ILLNESS: Mr. Ellis is a 66-year-old gentleman with a history of chronic systolic congestive heart failure with ejection fraction last known of 25% to 30%, insulin- dependent diabetes, type 1, hypertension, chronic kidney disease, stage 3, and history of prior cerebrovascular accident, who presented to the emergency department today with reports of low blood sugars as well as shortness of breath and respiratory distress. The patient states that this evening, he checked his blood sugars, it was in the mid 70s. He ate something prior to taking his regular 22 units of bedtime Tresiba. Shortly after that, the patient's found him unresponsive. She checked his blood sugar, it reportedly was 30, and she tried to bring his blood sugar up with orange juice and other food. EMS was also activated upon arrival. They found his blood sugar to be 32. He was given half an amp of D50 with dramatic improvement in the patient's mental status and level of consciousness. He then was noted to be very short of breath and in respiratory distress. EMS then gave him 80 of IV Lasix, some sublingual nitroglycerin, and placed him on CPAP for hypoxic respiratory failure and respiratory distress. Initial evaluation in the emergency department notable for stable vital signs. He was saturating well on CPAP therapy. The patient was then transitioned over to BiPAP with dramatic improvement in his respiratory distress as well as oxygenation. Chest x-ray concerning for some intravascular volume overload with pulmonary edema. Labs of elevated BNP level of 942, white count of 11.9, as well as troponin of 0.09. The patient reportedly put out almost 2 L to the 80 of Lasix that EMS gave him and then he was started on IV Zosyn given concerns for possible aspiration. At my time of examination, the patient denied any recent fevers, night sweats, chills, cough, sputum production, shortness of breath, chest pain, palpitations, abdominal pain, nausea, vomiting, diarrhea, constipation, dysuria, lower extremity edema, melena, hematochezia, or hemoptysis. The patient states he is feeling much better. He has now been weaned off the BiPAP and is saturating well on 3 L by nasal cannula. REVIEW OF SYSTEMS: Comprehensive system otherwise negative unless listed in history of present illness. PREVIOUS MEDICAL HISTORY: 1. Chronic systolic congestive heart failure. Ejection fraction about 25% to 30%, status post pacemaker AICD insertion. 2. History of prior cerebrovascular accidents with left MCA stroke and right occipital and History And Physical [address] [address] NAME: DULCE MARIA ELLIS : [birth year] STATUS : ADM IN [facility]#: [id number] AGE: 66 ADM/REG DATE : 12/29/16 MR#: [id number] REPORT SERV DATE: 12/29/16 DICTATED BY: LUNA SHEN DATE: 12/29/16 REPORT STATUS : Draft TRANSCRIBED BY: CARMELO DATE: 12/29/16 cerebellar strokes. 3. Insulin-dependent diabetes mellitus type 1 with recent hemoglobin A1c of 9.4. 4. Hypertension. 5. Chronic kidney disease, stage 3, baseline creatinine approximately 1.5 to 1.7. 6. Asthma. 7. History of atrial fibrillation. 8. Nonischemic cardiomyopathy. SURGICAL HISTORY: 1. Left ankle ORIF. 2. AICD pacemaker insertion. ALLERGIES: NO KNOWN DRUG ALLERGIES. HOME MEDICATIONS: 1. Norvasc 10 mg daily. 2. Aspirin 81 mg at bedtime. 3. Atorvastatin 40 mg daily. 4. Bumex 2 mg b.i.d. 5. Carvedilol 25 mg b.i.d. 6. Plavix 75 mg daily. 7. NovoLog FlexPen sliding scale. 8. Tresiba 22 units at bedtime. 9. Lactulose 20 g daily. 10.Nitroglycerin sublingual p.r.n. 11.Omeprazole 20 mg daily. 12.Aldactone 25 mg b.i.d. SOCIAL HISTORY: Denies any tobacco, occasional alcohol use. Denies any illicits. There is mention of the chart of a former cocaine use. FAMILY HISTORY: Mother with gastric cancer. Father with prostate cancer. Siblings with diabetes. LABS AND IMAGIN. White count 11.9, hemoglobin 13.1, hematocrit is 40.1, platelet count is 230, INR 1.3. 2. Sodium is 142, potassium 4.1, chloride 110, carbon dioxide 23, BUN 20, creatinine 1.71, glucose is 90, calcium is 8.5, protein 7.4, albumin 3.1, bilirubin is 0.4, ALT is 26, AST 26, alkaline phosphatase is 98. 3. BNP 942. Troponin 0.09. 4. Lactic acid is 1.3. Procalcitonin 0.06. 5. Chest x-ray per my review shows cardiomegaly with AICD pacemaker in place as well as some evidence of diffuse intravascular volume overload with pulmonary edema in the bases. No focal consolidation or infiltrate appreciated. 6. Per review of [employer] and [employer], he has had an echocardiogram done in September 2016 which showed ejection fraction of 25% to 30% with grade 1 diastolic dysfunction as well as dilated cardiomyopathy. History And Physical [address] [address] NAME: DULCE MARIA ELLIS : [birth year] STATUS : ADM IN [facility]#: [id number] AGE: 66 ADM/REG DATE : 12/29/16 MR#: [id number] REPORT SERV DATE: 12/29/16 DICTATED BY: LUNA SHEN DATE: 12/29/16 REPORT STATUS : Draft TRANSCRIBED BY: CARMELO DATE: 12/29/16 PHYSICAL EXAMINATION: VITAL SIGNS: Temperature is afebrile, pulse is 82, respirations 36, saturating 100% on CPAP, blood pressure 122/76. On recheck, blood pressure is now 128/82, saturating 99% on 3 L nasal cannula, heart rate of 72. GENERAL: The patient is awake, alert, in no acute distress. Resting comfortably in bed. He is a well-developed, well-nourished, male. HEENT: Atraumatic and normocephalic. Moist mucous membranes. Pupils are equal, round, reactive to light and accommodation. Extraocular eye movements intact. No scleral icterus. NECK: There is no JV distention or carotid bruits. CARDIAC: Regular rate and rhythm. A 1/6 systolic murmur best heard over left lower sternal border. LUNGS: On oxygen, but no distress. Does have some decreased breath sounds at bases as well as some bibasilar inspiratory rales in the bases and right lateral base rhonchi and crackles. ABDOMEN: Obese, soft, nontender, nondistended with good bowel sounds. No rebound, guarding, or rigidity. EXTREMITIES: Warm, well perfused with trace lower extremity edema. SKIN: Warm and dry. PSYCH: Affect appropriate. NEUROLOGIC: Alert and oriented x3. Cranial nerves 2 through 12 grossly intact. Speech is normal. Gait not assessed. ASSESSMENT AND PLAN: Mr. Ellis is a 66-year-old gentleman with history of chronic systolic congestive heart failure as well as insulin-dependent diabetes mellitus type 1 who is brought to the emergency today with reports of hypoglycemia as well as shortness of breath and respiratory distress. Problem list: 1. Symptomatic hypoglycemia, now corrected. 2. Acute on chronic systolic congestive heart failure. 3. Possible aspiration pneumonia. 4. Acute hypoxic respiratory failure and respiratory distress. 5. Elevated troponin level. 6. Chronic kidney disease, stage 3. 7. Leukocytosis. PLAN: 1. Symptomatic hypoglycemia. The patient's blood sugar is now improved. We will maintain close monitoring overnight. We will place him on level 1 insulin sliding scale throughout the day and then continue his home Tresiba pending the patient's blood sugars throughout the day. We will check hemoglobin A1c as well as consult diabetes nurse educator for assistance. 2. Acute on chronic systolic congestive heart failure. Chest x-ray does show evidence of pulmonary edema and volume overload. BNP is mildly elevated. I suspect the patient may have some component of flash pulmonary edema with some nitroglycerin and 80 of IV Lasix. He is doing much better, and on exam, sounds fairly clear. We will continue History And Physical [address] [place]. [address] NAME: DULCE MARIA ELLIS : 52 STATUS : ADM IN [facility]#: [id number] AGE: 66 ADM/REG DATE : 12/29/16 MR#: [id number] REPORT SERV DATE: 12/29/16 DICTATED BY: LUNA SHEN DATE: 12/29/16 REPORT STATUS : Draft TRANSCRIBED BY: CARMELO DATE: 12/29/16 some IV q.8 hours scheduled diuretics for the first 24 hours and then transition back to his home regimen. 3. Acute hypoxic respiratory failure with respiratory distress. The patient has now been weaned off his BiPAP and is now on 3 L nasal cannula. We will continue to try to wean as tolerated. 4. Possible aspiration pneumonia. I am concerned that the patient's respiratory complaints may be also due to aspiration pneumonia as was trying to feed him some orange juice while he had decreased level of consciousness. We will empirically place the patient on IV Zosyn and recheck a chest x-ray in a few hours to see if any new issue is developing. 5. Elevated troponin value. The patient denies any chest pain. EKG is nonischemic, likely demand ischemia. We will continue to trend these out. 6. Chronic kidney disease, stage 3, appears to be within his recent baseline. 7. Leukocytosis likely stress response versus also possible due to aspiration or aspiration pneumonitis. We will continue to monitor, will be on antibiotics. 8. Deep venous thrombosis prophylaxis. Lovenox subcu. CODE STATUS: The patient wishes to be full code. EZIO/CARMELO Luna Shen MD / [id number] CC: Jose Saldivar Jr., M.D. Cecilio Mcelroy III, M.D., [facility], [facility]
[~2016-12-29 00:39] MED LIST changes: +BIDIL20/37 PO; +BUM1 PO; +CONSTULOSE PO; +FLONASE NAS
[2016-12-29 01:00] LABS: BASOPHILS 0.3 %; BASOPHILS ABSOLUTE 0.03 10/3/uL (0.0-0.16); EOSINOPHILS 4.8 %; EOSINOPHILS ABSOLUTE 0.57 10/3/uL (0.0-0.53); HEMATOCRIT 40.1 % (40.0-51.0); HEMOGLOBIN 13.1 g/dL (13.6-17.8); IMMATURE GRANULOCYTES 0.3 %; IMMATURE GRANULOCYTES ABSOLUTE 0.04 10/3/uL (0.0-0.11); LYMPHOCYTES 25.5 %; LYMPHOCYTES ABSOLUTE 3.04 10/3/uL (0.67-4.30); MEAN CORPUS HGB CONC 32.7 g/dL (32.0-36.0); MEAN CORPUSCULAR HEMOGLOB 26.6 pg (26.0-34.0); MEAN CORPUSCULAR VOLUME 81.5 fL (80-100); MEAN PLATELET VOLUME 11.5 fL (9.2-13.0); MONOCYTES 7.6 %; MONOCYTES ABSOLUTE 0.91 10/3/uL (0.21-1.20); NEUTROPHILS 61.5 %; NEUTROPHILS ABSOLUTE 7.33 10/3/uL (2.02-8.40); PLATELET COUNT 230 10/3/uL (150-400); RBC DISTRIBUTION WIDTH 14.3 % (12.0-16.0); RED CELL COUNT 4.92 10/6/uL (4.7-6.1)
[2016-12-29 01:07] LABS: ER CBC TAT 0 Hrs 12 Mins; INTERNATIONAL NORMAL RATI 1.3 UNITS (-); MANUAL DIFF NO %; PARTIAL THROMBO TIME 23.6 SEC (22.5-37.2); PROTIME (NOT ORD) 16.1 SEC (12.0-14.5); WHITE BLOOD CELLS 11.9 10/3/uL (4.5-10.5)
[2016-12-29 01:20] LABS: LACTATE 1.3 MMOL/L (0.3-2.4)
[2016-12-29 01:21] LABS: A/G RATIO 0.7 (0.7-1.9); ALBUMIN 3.1 G/DL (3.5-5.0); BUN (BLOOD UREA NITROGEN) 20 MG/DL (6-23); CALCIUM, SERUM 8.5 MG/DL (8.5-10.4); CHLORIDE, SERUM 110 MMOL/L (96-112); CO2 (CARBON DIOXIDE) 23 MMOL/L (24-34); CREATININE 1.71 MG/DL (0.70-1.30); GFR AFRICAN AMERICAN 48 ML/MIN (>=60); GFR NON AFRICAN AMERICAN 41 ML/MIN (>=60); GLOBULIN 4.3 G/DL (2.5-4.1); POTASSIUM, SERUM 4.1 MMOL/L (3.5-5.3); SGOT(AST) 26 U/L (5-40); SGPT(ALT) 26 U/L (5-65); TOTAL BILIRUBIN 0.4 MG/DL (0-1.2); TOTAL PROTEIN 7.4 G/DL (6.0-8.5)
[2016-12-29 01:22] LABS: ALKALINE PHOSPHATASE 98 U/L (45-117); GLUCOSE, SERUM 90 MG/DL (60-99); SODIUM, SERUM 142 MMOL/L (135-148); TROPONIN I 0.09 NG/ML (<0.05)
[2016-12-29 01:25] LABS: ASCORBIC ACID (UR NOT ORDER) NEG (NEG); BILIRUBIN, URINE NEGATIVE (NEG); ER URINALYSIS TAT 0 Hrs 00 Mins; KETONE, URINE NEGATIVE (NEG); LEUKOCYTE ESTERASE(NOT OR NEG (NEG); NITRITE (URINE) NEG (NEG); WBC (NOT ORDERED) (RFLEX) 1 (0-5)
[2016-12-29 01:53] LABS: PROCALCITONIN 0.06 ng/mL (<0.5)
[2016-12-29] MEDS ORDERED: COREG25 PO (02:00)
[2016-12-29] MEDS ORDERED: PLAVIX PO (02:00)
[2016-12-29] MEDS ORDERED: ENULOSE PO (02:00)
[2016-12-29] MEDS ORDERED: NORV5 PO (02:00)
[2016-12-29] MEDS ORDERED: BUM2 PO (02:01)
[2016-12-29] MEDS ORDERED: LIPITOR40 PO (02:01)
[2016-12-29] MEDS ORDERED: SPIRO25 PO (02:01)
[2016-12-29] MEDS ORDERED: NITROSTAT0.4 MG SL (02:01)
[2016-12-29] MEDS ORDERED: TRESIBA FL100 UNIT/1 SC (02:02)
[2016-12-29] MEDS ORDERED: NOVOPEN (02:02)
[2016-12-29] MEDS ORDERED: ASAB PO (02:03)
[2016-12-29] MEDS ORDERED: PRILOSEC OTC20 MG PO (02:04)
[2016-12-29 05:30] LABS: BASOPHILS 0.1 %; BASOPHILS ABSOLUTE 0.01 10/3/uL (0.0-0.16); EOSINOPHILS 0.4 %; EOSINOPHILS ABSOLUTE 0.04 10/3/uL (0.0-0.53); HEMOGLOBIN 13.5 g/dL (13.6-17.8); IMMATURE GRANULOCYTES 0.4 %; IMMATURE GRANULOCYTES ABSOLUTE 0.04 10/3/uL (0.0-0.11); LYMPHOCYTES 12.7 %; MANUAL DIFF NO %; MEAN CORPUS HGB CONC 32.9 g/dL (32.0-36.0); MEAN CORPUSCULAR HEMOGLOB 26.9 pg (26.0-34.0); MEAN CORPUSCULAR VOLUME 81.7 fL (80-100); MEAN PLATELET VOLUME 11.6 fL (9.2-13.0); MONOCYTES 1.8 %; MONOCYTES ABSOLUTE 0.18 10/3/uL (0.21-1.20); NEUTROPHILS 84.6 %; NEUTROPHILS ABSOLUTE 8.67 10/3/uL (2.02-8.40); PLATELET COUNT 263 10/3/uL (150-400); RBC DISTRIBUTION WIDTH 14.4 % (12.0-16.0); RED CELL COUNT 5.02 10/6/uL (4.7-6.1); WHITE BLOOD CELLS 10.2 10/3/uL (4.5-10.5)
[2016-12-29 05:46] LABS: BUN (BLOOD UREA NITROGEN) 23 MG/DL (6-23); CALCIUM, SERUM 9.2 MG/DL (8.5-10.4); CHLORIDE, SERUM 107 MMOL/L (96-112); CO2 (CARBON DIOXIDE) 21 MMOL/L (24-34); CREATININE 1.62 MG/DL (0.70-1.30); GFR AFRICAN AMERICAN 51 ML/MIN (>=60); GFR NON AFRICAN AMERICAN 44 ML/MIN (>=60); SODIUM, SERUM 138 MMOL/L (135-148)
[2016-12-29 05:47] LABS: CK-MB 2.5 NG/ML; CPK 313 U/L (0-200); GLUCOSE, SERUM 117 MG/DL (60-99); POTASSIUM, SERUM 4.2 MMOL/L (3.5-5.3); TROPONIN I 0.14 NG/ML (<0.05)
[2016-12-29 11:15] LABS: CK-MB 2.3 NG/ML; CPK 249 U/L (0-200); TROPONIN I 0.11 NG/ML (<0.05)
[2016-12-30 05:15] LABS: BASOPHILS 0.1 %; BASOPHILS ABSOLUTE 0.01 10/3/uL (0.0-0.16); EOSINOPHILS 0.1 %; EOSINOPHILS ABSOLUTE 0.01 10/3/uL (0.0-0.53); HEMATOCRIT 35.8 % (40.0-51.0); IMMATURE GRANULOCYTES 0.5 %; IMMATURE GRANULOCYTES ABSOLUTE 0.07 10/3/uL (0.0-0.11); LYMPHOCYTES 13.1 %; LYMPHOCYTES ABSOLUTE 1.73 10/3/uL (0.67-4.30); MANUAL DIFF NO %; MEAN CORPUS HGB CONC 33.5 g/dL (32.0-36.0); MEAN CORPUSCULAR HEMOGLOB 26.9 pg (26.0-34.0); MEAN CORPUSCULAR VOLUME 80.3 fL (80-100); MEAN PLATELET VOLUME 11.3 fL (9.2-13.0); MONOCYTES ABSOLUTE 1.32 10/3/uL (0.21-1.20); NEUTROPHILS 76.2 %; NEUTROPHILS ABSOLUTE 10.09 10/3/uL (2.02-8.40); PLATELET COUNT 240 10/3/uL (150-400); RBC DISTRIBUTION WIDTH 14.3 % (12.0-16.0); RED CELL COUNT 4.46 10/6/uL (4.7-6.1); WHITE BLOOD CELLS 13.2 10/3/uL (4.5-10.5)
[2016-12-30 05:28] LABS: CALCIUM, SERUM 8.3 MG/DL (8.5-10.4); CHLORIDE, SERUM 106 MMOL/L (96-112); CO2 (CARBON DIOXIDE) 21 MMOL/L (24-34); CREATININE 1.89 MG/DL (0.70-1.30); GFR AFRICAN AMERICAN 42 ML/MIN (>=60); GFR NON AFRICAN AMERICAN 36 ML/MIN (>=60); POTASSIUM, SERUM 3.8 MMOL/L (3.5-5.3); SODIUM, SERUM 136 MMOL/L (135-148)
[2016-12-30 05:31] LABS: BUN (BLOOD UREA NITROGEN) 42 MG/DL (6-23); GLUCOSE, SERUM 195 MG/DL (60-99); PHOSPHORUS, SERUM 4.6 MG/DL (2.5-4.5)
[2016-12-30 06:00] LABS: PROCALCITONIN 0.27 ng/mL (<0.5)
[2016-12-31 05:19] LABS: BASOPHILS 0.3 %; BASOPHILS ABSOLUTE 0.02 10/3/uL (0.0-0.16); EOSINOPHILS 2.9 %; EOSINOPHILS ABSOLUTE 0.23 10/3/uL (0.0-0.53); HEMATOCRIT 38.6 % (40.0-51.0); HEMOGLOBIN 12.7 g/dL (13.6-17.8); IMMATURE GRANULOCYTES 0.4 %; IMMATURE GRANULOCYTES ABSOLUTE 0.03 10/3/uL (0.0-0.11); LYMPHOCYTES 30.5 %; LYMPHOCYTES ABSOLUTE 2.41 10/3/uL (0.67-4.30); MEAN CORPUS HGB CONC 32.9 g/dL (32.0-36.0); MEAN CORPUSCULAR HEMOGLOB 26.7 pg (26.0-34.0); MEAN CORPUSCULAR VOLUME 81.3 fL (80-100); MEAN PLATELET VOLUME 11.6 fL (9.2-13.0); MONOCYTES ABSOLUTE 0.87 10/3/uL (0.21-1.20); NEUTROPHILS 54.9 %; NEUTROPHILS ABSOLUTE 4.34 10/3/uL (2.02-8.40); PLATELET COUNT 244 10/3/uL (150-400); RBC DISTRIBUTION WIDTH 14.5 % (12.0-16.0); RED CELL COUNT 4.75 10/6/uL (4.7-6.1)
[2016-12-31 05:20] LABS: MANUAL DIFF NO %; WHITE BLOOD CELLS 7.9 10/3/uL (4.5-10.5)
[2016-12-31 05:27] LABS: BUN (BLOOD UREA NITROGEN) 45 MG/DL (6-23); CALCIUM, SERUM 8.5 MG/DL (8.5-10.4); CHLORIDE, SERUM 105 MMOL/L (96-112); CO2 (CARBON DIOXIDE) 23 MMOL/L (24-34); CREATININE 1.94 MG/DL (0.70-1.30); GFR AFRICAN AMERICAN 41 ML/MIN (>=60); GFR NON AFRICAN AMERICAN 35 ML/MIN (>=60); POTASSIUM, SERUM 4.1 MMOL/L (3.5-5.3); SODIUM, SERUM 137 MMOL/L (135-148)
[2016-12-31 05:28] LABS: GLUCOSE, SERUM 291 MG/DL (60-99)
[2017-01-01 05:35] LABS: BUN (BLOOD UREA NITROGEN) 48 MG/DL (6-23); CALCIUM, SERUM 8.8 MG/DL (8.5-10.4); CHLORIDE, SERUM 102 MMOL/L (96-112); CO2 (CARBON DIOXIDE) 24 MMOL/L (24-34); CREATININE 2.12 MG/DL (0.70-1.30); GFR AFRICAN AMERICAN 37 ML/MIN (>=60); GFR NON AFRICAN AMERICAN 32 ML/MIN (>=60); GLUCOSE, SERUM 239 MG/DL (60-99); POTASSIUM, SERUM 3.8 MMOL/L (3.5-5.3); SODIUM, SERUM 136 MMOL/L (135-148)
[2017-01-01 16:48] LABS: BUN (BLOOD UREA NITROGEN) 45 MG/DL (6-23); CALCIUM, SERUM 8.9 MG/DL (8.5-10.4); CHLORIDE, SERUM 104 MMOL/L (96-112); CO2 (CARBON DIOXIDE) 21 MMOL/L (24-34); CREATININE 2.08 MG/DL (0.70-1.30); GFR AFRICAN AMERICAN 38 ML/MIN (>=60); GFR NON AFRICAN AMERICAN 32 ML/MIN (>=60); SODIUM, SERUM 134 MMOL/L (135-148)
[2017-01-01 16:53] LABS: GLUCOSE, SERUM 184 MG/DL (60-99); POTASSIUM, SERUM 5.1 MMOL/L (3.5-5.3)
[2017-01-01] MEDS ORDERED: PREV30 PO (18:12)
[2017-01-01] MEDS ORDERED: APRES50 PO (18:14)
[2017-01-01] MEDS ORDERED: ISORDTITRA PO (18:15)
== END 2017-01-01 19:29 | disposition home health service (06) | DRG 291 ==
LOC: ENRESERVTM → ENRESERVDT → ENRESERV → ER 00:39 → IMCU 02:56 → 6NO 02:56
PROVIDERS: Hospitalist; Internal Medicine
DX: I13.0 Hypertensive heart and chronic kidney disease with heart failure and stage 1 through stage 4 chronic kidney disease, or unspecified chronic kidney disease (principal); J96.01 Acute respiratory failure with hypoxia; I47.2 Ventricular tachycardia; N17.9 Acute kidney failure, unspecified; N18.3 Chronic kidney disease, stage 3 (moderate); I50.43 Acute on chronic combined systolic (congestive) and diastolic (congestive) heart failure; I24.8 Other forms of acute ischemic heart disease; R04.2 Hemoptysis; E10.649 Type 1 diabetes mellitus with hypoglycemia without coma; E10.22 Type 1 diabetes mellitus with diabetic chronic kidney disease; E10.65 Type 1 diabetes mellitus with hyperglycemia; J45.909 Unspecified asthma, uncomplicated; I42.0 Dilated cardiomyopathy; I69.30 Unspecified sequelae of cerebral infarction; D64.9 Anemia, unspecified; Z95.810 Presence of automatic (implantable) cardiac defibrillator; Z91.14 Patient's other noncompliance with medication regimen; Z79.82 Long term (current) use of aspirin; Z79.4 Long term (current) use of insulin; Z79.02 Long term (current) use of antithrombotics/antiplatelets
CPT/HCPCS: 71010; 71250; 80048; 80053; 81001; 82550; 82553; 82962; 83036; 83605; 83735; 83880; 84100; 84145; 84484; 85025; 85610; 85730; 87040; 87641; 93005; 94640; 94660; 96365; 99291; A9270-GY; J2543